=== PATIENT | female | born 1990 ===

== ENCOUNTER 2021-06-01 17:13 | Outpatient (CLI) | payer OTHER ==
[~2021-06-01 17:13] MED LIST: PRENATAL CAPLE1 EACH PO
== END 2021-06-01 17:30 | disposition home or self-care (01) ==
LOC: NST 17:13
PROVIDERS: ATTEND Obstetrics & Gynecology
DX: Z34.83 Encounter for supervision of other normal pregnancy, third trimester (principal)

== ENCOUNTER 2021-06-30 19:03 | Outpatient (CLI) | payer OTHER | END 2021-06-30 20:05 | disposition home or self-care (01) | LOC: NST 19:03 | PROVIDERS: ATTEND Obstetrics & Gynecology | DX: Z34.83 Encounter for supervision of other normal pregnancy, third trimester (principal) ==

== ENCOUNTER 2021-07-14 07:23 | Inpatient (IN) | payer OTHER ==
[~2021-07-14] VITALS: Ht 157.5 cm; Wt 88.5 kg
== END 2021-07-16 21:06 | disposition home or self-care (01) | DRG 807 ==
LOC: LDR 07:23 → OB/GYN 22:31
PROVIDERS: ADMIT Obstetrics & Gynecology; ATTEND Obstetrics & Gynecology
PROC: 10E0XZZ Delivery of Products of Conception, External Approach (ICD-10-PCS; principal; 2021-07-14)
PROC: 4A1HXCZ Monitoring of Products of Conception, Cardiac Rate, External Approach (ICD-10-PCS; 2021-07-14)
DX: O80 Encounter for full-term uncomplicated delivery (principal); Z37.0 Single live birth; Z3A.39 39 weeks gestation of pregnancy; Z20.822 Contact with and (suspected) exposure to COVID-19